=== PATIENT | male | born 1985 | race American Indian/Alaskan Native ===

== ENCOUNTER 2018-11-26 16:23 | Emergency (ER) | payer OTHER ==
[2018-11-26 16:46] VITALS: BP 121/83
--- NOTE | 2018-11-26 18:17 | Emergency Department Report ---
ED Male HPI - General Chief complaint: Urogenital-Male Stated complaint: HEADACHE/STD CHECK Time Seen by Provider: 11/26/18 17:13 Source: patient Mode of arrival: Ambulatory Limitations: No Limitations - History of Present Illness Initial comments: 33-year-old male presents to the ED complaining of rectal irritation x 2 weeks. Patient also says that he is HIV positive is musculoskeletal with his family care time. Patient denies pain with bowel movement, dysuria, testicular swelling or pain. Next same patient denies fevers/chills/nausea vomitin g/cough/blood in the stool - Related Data Allergies Allergy/AdvReac Type Severity Reaction Status Date / Time No Known Allergies Allergy Unverified 11/26/18 16:26 ED Review of Systems ROS: Stated complaint: HEADACHE/STD CHECK Other details as noted in HPI ED Past Medical Hx - Past Medical History Previous Medical History?: Yes Hx HIV: Yes - Social History Smoking Status: Current Every Day Smoker Substance Use Type: Marijuana ED Physical Exam - General Limitations: No Limitations General appearance: alert, in no apparent distress - Head Head exam: Present: atraumatic, normocephalic - Eye Eye exam: Present: normal appearance - ENT ENT exam: Present: mucous membranes moist - Neck Neck exam: Present: normal inspection - Respiratory Respiratory exam: Present: normal lung sounds bilaterally. Absent: respiratory distress - Cardiovascular Cardiovascular Exam: Present: regular rate, normal rhythm. Absent: systolic murmur, diastolic murmur, rubs, gallop - GI/Abdominal GI/Abdominal exam: Present: soft, normal bowel sounds. Absent: distended, tenderness, mass - Rectal Rectal exam: Present: deferred, other (anal warts around rectum,10 visualized). Absent: hemorrhoids, mass - Extremities Exam Extremities exam: Present: normal inspection - Back Exam Back exam: Present: normal inspection - Neurological Exam Neurological exam: Present: alert, oriented X3, CN II-XII intact, normal gait - Psychiatric Psychiatric exam: Present: normal affect, normal mood - Skin Skin exam: Present: warm, dry, intact, normal color. Absent: rash ED Course Vital Signs 11/26/18 16:45 Temperature 98.8 F Pulse Rate 72 Respiratory 19 Rate Blood Pressure 121/83 [Left] O2 Sat by Pulse 98 Oximetry ED Medical Decision Making - Medical Decision Making 33-year-old male presents with anal warts. Discussed with patient he needs to follow-up with the [facility] or an infectious disease clinic to restart he is HIV medications. Discussed the patient had HPV causing warts does not have the care. Patient is in no acute distress. Vital signs are normal. Critical care attestation.: If time is entered above; I have spent that time in minutes in the direct care of this critically ill patient, excluding procedure time. ED Disposition Clinical Impression: Anal warts Disposition: - TO HOME OR SELFCARE Is pt being admited?: No Does the pt Need Aspirin: No Condition: Stable Instructions: Genital Warts (ED), Cryotherapy Wart Removal (ED) Additional Instructions: Make sure to follow up with the primary care physician as discussed. Take all your medications as you've been prescribed. If you have any worsening symptoms or develop new symptoms please return to ED immediately. Referrals: [facility] [Outside] - 3-5 Days [facility] [Outside] - 3-5 Days [facility] [place] [Outside] - 3-5 Days Forms: Work/School Release Form(ED) Time of Disposition: 18:22
== END 2018-11-26 18:37 | disposition home or self-care (01) ==
LOC: ED 16:23
DX: A63.0 Anogenital (venereal) warts (principal); F17.200 Nicotine dependence, unspecified, uncomplicated; F12.10 Cannabis abuse, uncomplicated
CPT/HCPCS: 99281